=== PATIENT | male | born 1970 | race American Indian/Alaskan Native ===

== ENCOUNTER 2017-04-18 12:04 | Emergency (ER) | payer MEDICARE ==
--- NOTE | 2017-04-18 12:56 | C.PDOC ---
History Of Present Illness 47 yr old male brought in via EMS, presents to the ER for evaluation of left lower back pain radiating to the left hip and left upper thigh, gradually developing for the past 2 days. Patient reports he sustained a mechanical fall 2 days ago . States the pain worsen with time, now is constant, aching and "spasmatic at time". Patient states was unable to walk today due to the pain in Left leg. Otherwise, pt Denies head injury, LOC, syncope, neck pain, CP, SOB, dyspnea, abdominal pain, dysuria, incontinence, saddle anesthesia, denies weakness , deformity, sensory or vascular deficits to Left leg. At present time , appears in pain. Time Seen by Provider: 04/18/17 12:47 Chief Complaint (Nursing): Lower Extremity Problem/Injury History Per: Patient History/Exam Limitations: no limitations Onset/Duration Of Symptoms: Days (2) Past Medical History Reviewed: Historical Data, Nursing Documentation, Vital Signs Vital Signs: Last Vital Signs Temp 98.1 F 04/18/17 12:35 Pulse 106 H 04/18/17 12:35 Resp 18 04/18/17 12:35 BP Pulse Ox 95 04/18/17 13:38 - Medical History PMH: Hyperthyroidism, Seizures Family History: States: No Known Family Hx - Social History Hx Alcohol Use: No Hx Substance Use: No - Immunization History Hx Tetanus Toxoid Vaccination: No Hx Influenza Vaccination: No Hx Pneumococcal Vaccination: No Review Of Systems Except As Marked, All Systems Reviewed And Found Negative. Gastrointestinal: Negative for: Abdominal Pain Genitourinary: Negative for: Dysuria, Incontinence Musculoskeletal: Positive for: Back Pain (left lower back pain radiating to left hip and left upper thigh). Negative for: Neck Pain Neurological: Negative for: Weakness, Numbness Physical Exam - Physical Exam Appears: Non-toxic, No Acute Distress Skin: Warm, Dry, No Rash, No Ecchymosis Head: Atraumatic, Normacephalic Eye(s): bilateral: PERRL Nose: No Flaring Oral Mucosa: Moist Throat: No Erythema, No Drooling Neck: Normal ROM, No Midline Cervical Tenderness, No Paracervical Tenderness, No Step Off Deformity, Supple Chest: Symmetrical Gastrointestinal/Abdominal: Soft, No Tenderness, No Distention, No Guarding Back: No CVA Tenderness, No Vertebral Tenderness, Muscle Spasm (left lumbar paraspinal), Paraspinal Tenderness (left lumbar paraspinal tenderness) Extremity: Normal ROM (mild discomfort to left hip movement. No erythema, no edema, no warmth, no neurovascular deficist distally.), Tenderness (tenderness over the left hip and lateral left femur), No Deformity, No Swelling Neurological/Psych: Oriented x3, Normal Speech, Normal Motor, Normal Sensation, Normal Reflexes ED Course And Treatment O2 Sat by Pulse Oximetry: 95 (RA) Pulse Ox Interpretation: Normal - Other Rad X-Ray - Left Femur X-Ray: Viewed By Me Interpretation: (-) ACUTE FX X-Ray - Left Hip X-Ray: Viewed By Me Interpretation: (+)DJD TO LEFT HIP, NO ACUTE FX OR DISLOCATION Progress Note: On re-eval, pt is afebrile, hemodynamicaly stable. Non-toxic. Tolerate Po well in ED. Head: AT/NC. Neck: Supple, (-) midlien tenderness. And : benign, (-) guaridng, (-) rebound. BacK: (-) CVA tenderness, (-) midline tenderness, no ecchymoses. LLE: mild tendreness oevrlying left hip. No edema, no erythema, no warmth, no shortening. NO neurovascular deficits. Neurologicaly intact. Imaging review ,case discussed with . Pt has clinical findings c/w lumbar radiculopathy, left hip arthrlagia/arthritis s/p contusion. Pt advised on course of ds. ref. to F/u with PMD, Ortho In 2-3 days for re-eval. return if any new changes. Medical Decision Making Medical Decision Making: PLAN: * X-Ray - Left Femur, Left Hip * Tylenol PO Disposition Counseled Patient/Family Regarding: Studies Performed, Diagnosis, Need For Followup, Rx Given - Disposition Referrals: [facility] [Outside] Disposition: HOME/ ROUTINE Disposition Time: 13:59 Condition: STABLE Additional Instructions: LIGHT DUTY TO LEFT LEG, AVOID PROLONG WALKING FOR 1 WEEK TAKE MEDICATION PRESCRIBED NEED FOLLOW UP WITH PMD AND ORTHOPEDIST IN 2-3 DAYS FOR RE-EVALUATION. RETURN TO ED IF ANY WORSENING OR NEW CHANGES. Prescriptions: Ibuprofen [Motrin Tab] 600 mg PO Q6 #20 tab Methocarbamol [Robaxin] 500 mg PO TID #14 tab traMADol [Ultram] 50 mg PO TID #7 tab Instructions: Lumbar Radiculopathy (ED), Hip Contusion (ED), Arthritis (ED) Forms: [employer] (Kinyarwanda) - Clinical Impression Clinical Impression: Lumbar radiculopathy, Arthritis, Contusion, hip - PA / FINANCIAL SERVICE REPRESENTATIVE / Resident Statement MD/DO has reviewed & agrees with the documentation as recorded. - Scribe Statement The provider has reviewed the documentation as recorded by the Scribe Geno Santo All medical record entries made by the Scribe were at my direction and personally dictated by me. I have reviewed the chart and agree that the record accurately reflects my personal performance of the history, physical exam, medical decision making, and the department course for this patient. I have also personally directed, reviewed, and agree with the discharge instructions and disposition.
--- NOTE | 2017-04-18 13:59 | RAD ---
PROCEDURE: Left Hip X-ray Radiographs. HISTORY: injury COMPARISON: None. FINDINGS: BONES: No acute fracture. JOINTS: Severe degenerative changes both hips approximately stable. No evidence of subluxation, dislocation or protrusio. SOFT TISSUES: Normal. OTHER FINDINGS: None. IMPRESSION: Severe degenerative changes both hips common no acute findings.
--- NOTE | 2017-04-18 14:01 | RAD ---
PROCEDURE: Left femur HISTORY: Unspecified injury. COMPARISON: 2017. Left hip reported separately TECHNIQUE: Standard protocol for this study/examination. FINDINGS: No significant/acute osseous, articular or soft tissue abnormalities. Degenerative changes left hip and incompletely degenerative changes left knee. IMPRESSION: No acute findings related to/accounting for the clinical presentation. Will
[2017-04-18 14:33] VITALS: BP 142/88; PULSE 100; RESP 20; TEMP 97.5; O2SAT 100
== END 2017-04-18 14:33 | disposition home or self-care (01) ==
LOC: C.ER 12:04
DX: M54.16 Radiculopathy, lumbar region (principal); M16.12 Unilateral primary osteoarthritis, left hip; S70.02XA Contusion of left hip, initial encounter; W18.30XA Fall on same level, unspecified, initial encounter